=== PATIENT | female | born 1985 | race Caucasian/White ===

== ENCOUNTER 2016-12-15 11:53 | Emergency (ER) | payer BC, MEDICAID, OTHER ==
[~2016-12-15] VITALS: Ht 160 cm; Wt 79.8 kg
[2016-12-15 11:57] VITALS: BP 114/76
[2016-12-15] MEDS ORDERED: DIAZEPAM 5 MG TABLET PO ONE (12:30)
[2016-12-15] MEDS ORDERED: HYDROcodone/APAP 5/325 TABLET PO ONE (12:30)
[2016-12-15] MEDS ORDERED: HYDROcodone/APAP 5/325 TABLET ONE (12:33)
[2016-12-15] MEDS ORDERED: DIAZEPAM 5 MG TABLET ONE (12:37)
== END 2016-12-15 14:13 | disposition home or self-care (01) ==
LOC: ED 13:24
DX: S16.1XXA Strain of muscle, fascia and tendon at neck level, initial encounter (principal); S13.4XXA Sprain of ligaments of cervical spine, initial encounter; M25.511 Pain in right shoulder; G89.29 Other chronic pain; X58.XXXA Exposure to other specified factors, initial encounter; Y93.89 Activity, other specified; Y92.89 Other specified places as the place of occurrence of the external cause; Y99.8 Other external cause status
CPT/HCPCS: 72125; 99284

== ENCOUNTER 2019-12-03 18:27 | Emergency (ER) | payer BC, OTHER ==
[~2019-12-03] VITALS: Ht 157.5 cm; Wt 89.0 kg
[2019-12-03 18:36] VITALS: BP 105/60
--- NOTE | 2019-12-03 18:49 | NUR ---
PT HERE WITH C/O LEFT KNEE PAIN S/P FALL AT A [employer]. LEFT KNEE SWOLLEN.
[2019-12-03] MEDS ORDERED: HYDROmorphone 1 MG/ML, 1ML INJ ONE (18:52)
[2019-12-03] MEDS ORDERED: KETOROLAC 60 MG/2 ML ONE (18:52)
[2019-12-03] MEDS ORDERED: ONDANSETRON ODT 8 MG ONE (18:52)
--- NOTE | 2019-12-03 18:55 | NUR ---
PT MEDICATED PER ORDERS.
[2019-12-03] MEDS ORDERED: HYDROmorphone/PF 4 MG/ML, 1ML IM ONE (19:00)
[2019-12-03] MEDS ORDERED: ONDANSETRON ODT 4 MG PO ONE (19:00)
[2019-12-03] MEDS ORDERED: KETOROLAC 30 MG/1 ML IM ONE (19:00)
--- NOTE | 2019-12-03 20:10 | NUR ---
TECH AT BEDSIDE FOR KNEE IMMOBILZER AND CRUTCHES.
--- NOTE | 2019-12-03 20:18 | NUR ---
Patient/Caregiver given discharge instructions and they have confirmed that they understand the instructions. Patient ambulatory with steady gait.
== END 2019-12-03 20:30 | disposition home or self-care (01) ==
LOC: ED 20:20
DX: S83.502A Sprain of unspecified cruciate ligament of left knee, initial encounter (principal); X50.1XXA Overexertion from prolonged static or awkward postures, initial encounter; Y93.89 Activity, other specified; Y92.89 Other specified places as the place of occurrence of the external cause; Y99.8 Other external cause status
CPT/HCPCS: 29505; 73564; 73590; 96372; 99284; J1170; J1885; Q0162

== ENCOUNTER → 2019-12-21 | Outpatient (CLI) | payer BC | END | disposition home or self-care (01) | LOC: RAD 11:41 | PROVIDERS: ATTEND Family Medicine Sports Medicine | DX: S83.512A Sprain of anterior cruciate ligament of left knee, initial encounter (principal); X58.XXXA Exposure to other specified factors, initial encounter; Y93.89 Activity, other specified; Y92.89 Other specified places as the place of occurrence of the external cause; Y99.8 Other external cause status ==

== ENCOUNTER → 2020-02-09 | Day surgery (SDC) | payer BC | END | disposition home or self-care (01) | LOC: OUT 10:57 | PROVIDERS: ATTEND Orthopaedic Surgery | DX: Z02.9 Encounter for administrative examinations, unspecified (principal) ==